=== PATIENT | male | born 1995 ===

== ENCOUNTER 2017-11-02 11:56 | Emergency (ER) | payer SELFPAY ==
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
[2017-11-02 12:16] VITALS: BMI 22.8
[2017-11-02 12:23] VITALS: BP 119/66; PULSE 63; RESP 16; TEMP 98; O2SAT 98
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
== END 2017-11-02 13:32 | disposition home or self-care (01) ==
LOC: H.ER 11:56
DX: S93.401A Sprain of unspecified ligament of right ankle, initial encounter (principal); V13.4XXA Pedal cycle driver injured in collision with car, pick-up truck or van in traffic accident, initial encounter; Y93.55 Activity, bike riding